=== PATIENT | female | born 1990 | race African-American/Black ===

== ENCOUNTER 2018-08-13 09:47 | Emergency (ER) | payer OTHER ==
[~2018-08-13] VITALS: Ht 165.1 cm; Wt 74.8 kg
[2018-08-13] MEDS ORDERED: AMOXICILLIN 50500 MG PO (11:28)
[2018-08-13 11:47] VITALS: BP 111/69
--- NOTE | 2018-08-13 17:13 | EKG ---
[place] [address] [address] [facility] [place] [facility] [place] [address] ELECTROCARDIOGRAM REPORT Name: FELA CURRY Room #: DEP SHEELA Churchill#: [id number] ������������������ Admission: 08/13/18 ������������������ Attend Phys: Discharge: 08/13/18 ������������������ Date of : 89 Report #: [id number] ����������������������������������������������������������������� [id number] THIS REPORT FOR: //name// [facility] ED Test Date: 2018-08-13 Test Time: 11:08:34 Pat Name: FELA CURRY Department: Room: Gender: F Flame Degreaser: [id number] : 1990 Requested By: Kanu Karimi Order Number: [id number] MD: Benjamín Moreno Measurements Intervals [place] Rate: 75 P: 57 NM: 160 QRS: 61 QRSD: 95 T: 29 QT: 388 QTc: 434 Interpretive Statements Sinus rhythm Normal tracing No previous ECG available for comparison Electronically Signed On 08-13-2018 17:13:04 CDT by Benjamín Moreno [email or web address] ��������������������������������������������� <ELECTRONICALLY SIGNED> ���������������������������������������� By: Benjamín Moreno MD, [facility] ��������������������������������������������� 08/13/18 1713 1108 1108 Benjamín Moreno MD, FACC /EPI
== END 2018-08-13 11:47 | disposition home or self-care (01) ==
LOC: ER 09:47
DX: J06.9 Acute upper respiratory infection, unspecified (principal); H66.93 Otitis media, unspecified, bilateral; Z88.6 Allergy status to analgesic agent